=== PATIENT | male | born 1990 | race Caucasian/White ===

== ENCOUNTER 2016-12-10 11:18 | Day surgery (SDC) | payer OTHER ==
[2016-12-10] MEDS ORDERED: CELECOXIB 100 MG CAPSULE PO ONE (11:57)
[2016-12-10] MEDS ORDERED: CLINDAMYCIN 600 MG/50 ML 50 ML IV ONE (11:58)
[2016-12-10] MEDS ORDERED: ACETAMINOPHEN 1,000 MG/100 ML 100 ML IV ONE (11:58)
[2016-12-10] MEDS ORDERED: LACTATED RINGERS 1,000 ML IV ONE (12:04)
[2016-12-10] MEDS ORDERED: BUPIVACAINE 0.5%-EPI 1:200000 PF 30 ML VIAL SUBQ ONE (14:00)
[2016-12-10] MEDS ORDERED: CLINDAMYCIN 600 MG IV ONE (14:00)
[2016-12-10] MEDS ORDERED: ACETAMINOPHEN 1,000 MG/100 ML VIAL IV ONE (14:00)
[2016-12-10] MEDS ORDERED: fentaNYL 250 MCG/5 ML VIAL IVP ONE (14:00)
[2016-12-10] MEDS ORDERED: PROPOFOL 200 MG/20 ML VIAL IVP ONE (14:00)
[2016-12-10] MEDS ORDERED: MIDAZOLAM 2 MG/2 ML VIAL IVP ONE (14:00)
[2016-12-10] MEDS ORDERED: LIDOCAINE-MPF 2% 5 ML VIAL IM ONE (14:00)
[2016-12-10] MEDS ORDERED: ONDANSETRON 4 MG/2 ML VIAL IVP ONE (14:00)
[2016-12-10] MEDS ORDERED: BUPIVACAINE 0.25% PF 30 ML VIAL SUBQ ONE (14:33)
== END 2016-12-10 11:19 | disposition home or self-care (01) ==
PROC: 0MM14ZZ Reattachment of Right Shoulder Bursa and Ligament, Percutaneous Endoscopic Approach (ICD-10-PCS; principal; 2016-12-10 13:05)
PROC: 0MB14ZZ Excision of Right Shoulder Bursa and Ligament, Percutaneous Endoscopic Approach (ICD-10-PCS; 2016-12-10 13:05)
PROC: 0PB94ZZ Excision of Right Clavicle, Percutaneous Endoscopic Approach (ICD-10-PCS; 2016-12-10 13:05)
DX: S43.431A Superior glenoid labrum lesion of right shoulder, initial encounter (principal); M75.41 Impingement syndrome of right shoulder; M89.511 Osteolysis, right shoulder; G47.00 Insomnia, unspecified; Z87.891 Personal history of nicotine dependence; Z88.1 Allergy status to other antibiotic agents
CPT/HCPCS: 29807; 29824; 29826; 73000; A9270; C1713; J0131; J3010; J7120